=== PATIENT | female | born 2000 | race Caucasian/White ===

== ENCOUNTER 2023-11-06 05:46 | Day surgery (SDC) | payer OTHER ==
[2023-11-06] VITALS (7 sets, daily range): BP systolic 101–125; BP diastolic 53–70
[~2023-11-06] VITALS: Ht 170.2 cm; Wt 59.1 kg
[~2023-11-06 05:46] MED LIST: LACTATED RINGER'S 1,000 ML IV SCH
[2023-11-06] MEDS ORDERED: MISOPROSTOL200 MCG PO (06:02)
[2023-11-06] MEDS ORDERED: KETOROLAC TROMETHAMINE 30 MG/ML VIAL ONE (06:38)
[2023-11-06] MEDS ORDERED: METOCLOPRAMIDE HCL 10 MG/2 ML SDV ONE (06:38)
[2023-11-06] MEDS ORDERED: LACTATED RINGER'S 1,000 ML IV ONE (06:38)
[2023-11-06] MEDS ORDERED: fentaNYL citrate 100 MCG/2 ML VIAL ONE (06:38)
[2023-11-06] MEDS ORDERED: FAMOTIDINE 20 MG/ 2 ML VIAL ONE (06:38)
[2023-11-06] MEDS ORDERED: DEXAMETHASONE SOD PHOS 4 MG/ML VIAL ONE (06:38)
[2023-11-06] MEDS ORDERED: ondansetron HCL 4 MG/2 ML VIAL ONE (06:38)
[2023-11-06] MEDS ORDERED: propofoL 200 MG/20 ML VIAL ONE (06:38)
[2023-11-06] MEDS ORDERED: MIDAZOLAM HCL 2 MG/2 ML VIAL ONE (06:38)
[2023-11-06] MEDS ORDERED: IBLOOD GLUCOSE TEST STRIP 1 EA TEST VI PRN ×2 (07:00→08:15)
[2023-11-06] MEDS ORDERED: CEFAZOLIN SODIUM 2 GM/20 ML SYR IV SCH (07:00)
[2023-11-06] MEDS ORDERED: LIDOCAINE HCL 1% 5 ML SDV INJ ONE (07:00)
[2023-11-06] MEDS ORDERED: RHO(D) IMMUNE GLOBULIN 1,500 UNIT/2 ML ML IM SCH (07:00)
[2023-11-06] MEDS ORDERED: droPERidol 5 MG/2 ML VIAL ONE (07:22)
--- NOTE | 2023-11-06 07:23 | NUR ---
PT GONE FOR PROCEDURE. PROVIDED PRAYER.
--- NOTE | 2023-11-06 07:35 | NUR ---
PT IN PROCEDURE. VISITED FAMILY IN ROOM; NO ANXIETY OR NERVOUSNESS IN EVIDENCE; STATED NO IMMEDIATE NEEDS. BABY FORMUL[employer] WORKER PROVIDED SUPPORTIVE PRESENCE, HOSPITALITY, PRAYER.
[2023-11-06] MEDS ORDERED: ePHEDrine sulfate 50 MG/ML AMP ONE (07:51)
[2023-11-06] MEDS ORDERED: SIMETHICONE 125 MG TABLET CHEWABLE PO PRN (08:00)
[2023-11-06] MEDS ORDERED: FAMOTIDINE 20 MG/ 2 ML VIAL IV PRN (08:00)
[2023-11-06] MEDS ORDERED: FAMOTIDINE 20 MG TAB PO PRN (08:00)
[2023-11-06] MEDS ORDERED: MAGNESIUM HYDROXIDE/AL HYDROX 30 ML CUP PO PRN (08:00)
[2023-11-06] MEDS ORDERED: bisacodyL 10 MG SUPP PR PRN (08:00)
[2023-11-06] MEDS ORDERED: HYDROCODONE/ACETA 5/325 TAB PO PRN (08:00)
[2023-11-06] MEDS ORDERED: NALOXONE HCL 0.4 MG SYR IV PRN ×2 (08:00→08:15)
[2023-11-06] MEDS ORDERED: ZOLPIDEM TARTRATE 5 MG TAB PO PRN (08:00)
--- NOTE | 2023-11-06 08:03 | NUR ---
11/06/23 0803 Jennifer Stephen [id number] PT TO PACU ORAL AIRWAY IN PLACE, SCANT BLOOD NOTED ON ZOEY PAD.
[2023-11-06] MEDS ORDERED: METOCLOPRAMIDE HCL 10 MG/2 ML SDV IV PRN (08:15)
[2023-11-06] MEDS ORDERED: MORPHINE SULFATE 10 MG/ML VIAL IV PRN (08:15)
[2023-11-06] MEDS ORDERED: ondansetron HCL 4 MG/2 ML VIAL IV PRN (08:15)
[2023-11-06] MEDS ORDERED: droPERidol 5 MG/2 ML VIAL IV PRN (08:15)
[2023-11-06] MEDS ORDERED: fentaNYL citrate 50 MCG/ML SDV IV PRN (08:15)
[2023-11-06] MEDS ORDERED: PROCHLORPERAZINE EDISYLATE 10 MG/2 ML VIAL IV PRN (08:15)
[2023-11-06] MEDS ORDERED: MINERAL OIL/CHONDRUS 30 ML BTL PO SCH (09:00)
[2023-11-06] MEDS ORDERED: SIMETHICONE 125 MG TABLET CHEWABLE PO SCH (09:00)
[2023-11-06] MEDS ORDERED: SENNOSIDES/DOCUSATE 1 EA TAB PO SCH (09:00)
--- NOTE | 2023-11-06 09:55 | NUR ---
LE 0830 PT ARRIVED TO DAY SURGERY FROM PACU VIA STRECHER. PT BREATHING EQUAL AND UNLABORED. PT REPORTS NO NAUSEA. PT REPORTS 6/10 INTOLERABLE PAIN. REPORT TAKEN FROM BRIAN FIGUEROA. IV ASSESSED, VITALS TAKEN. 0850 PT ABLE TO TOLERATE PO PUDDING AND ICE WATER. 0914 PAIN PILL AND GAS RELEIF GIVEN. PT REPORTS NO NAUSEA AT THIS TIME.
--- NOTE | 2023-11-06 09:57 | NUR ---
0930 PT ABLE TO AMBULATE TO BATHROOM AND VOID 400 MLS OF DARK RED URINE WITH SEVERAL SMALL BLOOD CLOTS AND ONE LARGER BLOOD CLOT ABOUT THE SIZE OF AN EGG. 0940 HOURLY ROUNDING DONE PT REPORTS 3/10 TOLERABLE PAIN. PT REPORTS NO NAUSEA. ZOEY PAD CHANGED, MODERATE AMOUNT OF RED DRAINAGE NOTED. 0955 [facility]ED [facility] TO [facility] TO UPDATE DR ON PT CONDITION. AWAITING CALL BACK.
[2023-11-06] MEDS ORDERED: miSOPROStoL 200 MCG TAB SL ONE (10:30)
--- NOTE | 2023-11-06 10:34 | NUR ---
1010 PT VOIDED 600 MLS OF DARK RED URINE, WITH SEVERAL SMALL CLOTS AND 1-2 LARGE EGG SIZED CLOTS. [address] ARBOLEDA AND UPDATED ON SITUATION. VERBALLY ORDERED 800 MCG CYTOTEC SL ONCE NOW, AND WOULD LIKE TO BE UPDATED ON PT CONDITION 30 MINUTES AFTER BEING GIVEN. 1023 SPOKE WITH PHARMACY ABOUT ORDER TO BE PUT IN PIXUS.
--- NOTE | 2023-11-06 10:36 | NUR ---
1030 HOURLY ROUDNING DONE. UPDATED PT ON MEDICATIONS AND SITUATION, EDUCATED ABOUT CLOTS. VITALS TAKEN. PAIN TOLERABLE /10. PT RESTING IN BED WITH CALL LIGHT WITHIN REACH AND BOYFRIEND AT BEDSIDE. PT REPORTS NO NAUSEA.
--- NOTE | 2023-11-06 10:44 | NUR ---
1042 800 MCG OF CYTOTEC GIVEN SUBLIGINALLY PER VERBAL ORDER FROM MD. PT DONE WITH SL TABLETS AT 1052. PT IN BED WITH BOYFRIEND AT BEDSIDE. PT HAS CALL LIGHT WITHIN REACH AND PERSONAL ITEMS WITHIN REACH. PT HAS NO FURTHER QUESTIONS AT THIS TIME.
[2023-11-06 11:03] LABS: ABO A; ANTIBODY SCREEN NEGATIVE; FETAL HEMOGLOBIN SCREEN NEGATIVE; RH NEGATIVE; RHIG DOSE 1; RHIG STATUS CANDIDATE; RHIG VIAL 1 RG23O03-I
--- NOTE | 2023-11-06 11:29 | NUR ---
1122 PT GOT UP TO USE RESTROOM AND PT PASSED 1 LOT THE SIZE OF AN EGG AND ANOTHER SMALLER CLOT. [address] ARBOLEDA'S OFFICE TO UPDATE . NO ANSWER.
--- NOTE | 2023-11-06 11:59 | NUR ---
[address] ARBOLEDA ABOUT PT PASSING CLOTS. VERBALLY ORDERED 800 MCG OF CYTOTEC RECTALLY ONCE NOW. 1153 SPOKE WITH PHARMACIST ABOUT ORDER. PHARMACY STATES THEY ONLY HAVE 1000 MCG SUPPOSITORY OR 800 MCG TABLETS. 1155 SPOKE WITH IN REGARDS TO THIS. STATES 1000 MCG SUPPOSITORY IS OKAY. 1156 PHARMACY CALLED BACK AND STATES THEY ONLY HAVE THE TABLETS AND NO SUPPOSITORYS SO PHARMACY IS FILLING ORDER FOR THE 800 MCG TABLETS RECTALLY.
[2023-11-06] MEDS ORDERED: miSOPROStoL 200 MCG TAB PR ONE (12:00)
--- NOTE | 2023-11-06 12:20 | NUR ---
[address] ARBOLEDA ABOUT PATIENT. SPOKE WITH PT AND VIZULIAZED CLOTS. VERBALLY ORDERED 1G TXA IV ONCE NOW. CALLED PHARMACY TO LET THEM KNOW ORDER IS IN. 1220 STATES SHE IS GOING TO BE LEAVING AFTER SHE SEES PATIENT, STATES DR MEJIA WILL BE TAKING OVER WHEN SHE IS GONE FOR THE DAY.
[2023-11-06] MEDS ORDERED: TRANEXAMIC ACID IN NACL,ISO-OS 1,000 MG/100 ML PIGGYBACK IV ONE (12:30)
--- NOTE | 2023-11-06 13:49 | NUR ---
1335 HOURLY ROUNDING DONE. VITALS TAKEN. IV ASSESSED. PT REPORTS TOLERABLE 3/10 PAIN. PT REPORTS NO NAUSEA. PT HAS BEEN ABLE TO TOLERATE PO FLUIDS AND SNACKS. PT HAS BEEN ABLE TO VOID. PER DR ARBOLEDA PT IS ABLE TO DISCHARGE AN HOUR AFTER TXA COMPLETE IF NO FUTHER CLOTS ARE BEING PASSED. PT WAS ABLE TO AMBULATE TO BATHROOM AND VOID A SMALL AMOUNT OF DARK RED URINE, NO CLOTS NOTED. PT WILL TRY AGAIN AT 1400. PT IN BED WITH CALL LIGHT ZIONIHIN REACH AND BOYFRIEND AT BEDSIDE. 1340 DISCHARGE INFORMATION GONE OVER WITH PATIENT AND BOYFRIEND. NO QUESTIONS AT THIS TIME
--- NOTE | 2023-11-06 14:05 | NUR ---
1400 PT ABLE TO AMBULATE TO BATHROOM. PATIENT JUST HAS A SMALL AMOUT OF RED DRAIANGE. NO CLOTS NOTED. PATIENT STATES SHE IS FEELING WELL. PATIENT GETTING DRESSED ON THEIR OWN.
== END 2023-11-06 14:08 | disposition home or self-care (01) ==
LOC: OPS 05:46 → DS 05:46 → OPS 07:30 → DS 07:30 → OPS 14:08
PROVIDERS: ATTEND Obstetrics & Gynecology
PROC: 10D07Z8 Extraction of Products of Conception, Other, Via Natural or Artificial Opening (ICD-10-PCS; principal; 2023-11-06 07:30)
DX: O02.1 Missed abortion (principal)
CPT/HCPCS: 01965; 36415; 83030; 86850; 86900; 86901; A9270; J0690; J1100; J1790; J1885; J2250; J2405; J2704; J2765; J2790; J3010; J7121

== ENCOUNTER 2024-03-19 13:08 | Emergency (ER) | payer OTHER ==
[~2024-03-19] VITALS: Ht 170.2 cm; Wt 64.0 kg
[~2024-03-19 13:08] MED LIST changes: -LACTATED RINGER'S 1,000 ML IV SCH; +MISOPROSTOL200 MCG PO
[2024-03-19 14:07] LABS: BASOPHILS 0.4 % (0-2); EOSINOPHILS 0.3 % (0-6); HEMATOCRIT 38.4 % (35.0-50.0); HEMOGLOBIN 13.2 g/dL (12.0-18.0); LYMPHOCYTES 18.6 % (24-44); MCH 30.8 (27-36); MCHC 34.3 g/dl (30-36); MCV 89.9 fl (81-99); NEUTROPHILS 75.7 % (39-80); PLATELET COUNT 236 K/uL (140-440); RBC 4.27 M/ul (4.3-5.7); RDW 13.2 (10.5-15.0)
[2024-03-19 14:25] LABS: ABO A; RH NEGATIVE
[2024-03-19 14:42] LABS: ALBUMIN 3.6 g/dL (3.4-5.0); ALBUMIN/GLOBULIN RATIO 1.06 (1.1-2.4); ANION GAP 15.2 (7-21); BILIRUBIN, TOTAL 0.3 ng/dL (0.2-1.0); BUN/CREATININE RATIO 18.33 (6.0-28.6); CALCIUM 8.9 mg/dL (8.5-10.1); CREATININE, SERUM 0.6 mg/dL (0.55-1.02); POTASSIUM 3.2 mmol/L (3.5-5.1)
[2024-03-19 15:03] LABS: BILIRUBIN, URINE NEGATIVE (negative); BLOOD/HGB, URINE MODERATE (Negative); KETONE, URINE TRACE (Negative); LEUK ESTERASE, URINE NEGATIVE (negative); NITRITE, URINE NEGATIVE (negative)
[2024-03-19 15:09] LABS: BACTERIA, URINE RARE /hpf (negative); CASTS, URINE NONE SEEN \\lpf; COLLECTION TYPE, URINE CLEAN CATCH; CRYSTALS, URINE NONE SEEN (0-1+); EPITHELIAL CELLS, URINE SQUAMOUS 2+ /lpf (0-1+); REFLEX CULTURE, URINE No (No)
[2024-03-19] MEDS ORDERED: RHO(D) IMMUNE GLOBULIN 1,500 UNIT/2 ML ML IM ONE (16:00)
[2024-03-19 16:09] LABS: RHIG VIAL 1 RG24K02-D
[2024-03-19 17:05] VITALS: BP 107/65
== END 2024-03-19 17:05 | disposition home or self-care (01) ==
LOC: ED 13:08
PROVIDERS: Emergency Medicine
DX: O20.0 Threatened abortion (principal); Z67.91 Unspecified blood type, Rh negative; Z3A.01 Less than 8 weeks gestation of pregnancy
CPT/HCPCS: 36415; 76801; 76817; 80053; 81001; 84702; 85025; 86900; 86901; 96372; 99284-25; J2790

== ENCOUNTER 2024-10-28 06:47 | Inpatient (IN) | payer BC, OTHER ==
[~2024-10-28] VITALS: Ht 170.2 cm; Wt 89.4 kg
[2024-10-28] MEDS ORDERED: LIDOCAINE 2% VISCOUS 6 ML SYR TOP ONE ×4 (08:30→17:15)
[2024-10-28] MEDS ORDERED: LIDOCAINE HCL 1% 30 ML SDV INJ PRN (08:30)
[2024-10-28] MEDS ORDERED: CALCIUM CARBONATE 500 MG CHEW PO PRN ×2 (08:30→17:15)
[2024-10-28] MEDS ORDERED: TERBUTALINE SULFATE 1 MG/ML AMP SUB-Q PRN (08:30)
[2024-10-28] MEDS ORDERED: MAGNESIUM HYDROXIDE/AL HYDROX 30 ML CUP PO PRN ×2 (08:30→17:15)
[2024-10-28 08:35] LABS: MCH 28.5 PG (25.6-32.2); MCHC 32.8 g/dL (32.2-35.5); MCV 86.8 fL (79.4-94.8); RBC 4.25 M/uL (3.93-5.22)
[2024-10-28] MEDS ORDERED: LACTATED RINGER'S 1,000 ML IV SCH (08:45)
[2024-10-28] MEDS ORDERED: fentaNYL citrate 100 MCG/2 ML VIAL ONE (08:50)
[2024-10-28] MEDS ORDERED: ROPIVACAINE 0.2% 200 ML BAG ONE (08:50)
[2024-10-28 09:14] LABS: ABO A; ANTIBODY SCREEN POSITIVE; RH NEGATIVE
[2024-10-28] MEDS ORDERED: LACTATED RINGER'S 2,000 ML IV ONE (09:30)
[2024-10-28] MEDS ORDERED: LACTATED RINGER'S 500 ML IV PRN (09:30)
[2024-10-28] MEDS ORDERED: ePHEDrine sulfate 5 MG/ML SYRINGE IV PRN (09:30)
[2024-10-28] MEDS ORDERED: ROPIVACAINE 0.2% 200 ML BAG EPIDURAL SCH (09:30)
[2024-10-28 09:49] LABS: ANTIBODY IDENTIFICATION ANTI-D
[2024-10-28 10:49] LABS: AMPHETAMINES, URINE NEGATIVE (NEGATIVE); BARBITURATES, URINE NEGATIVE (NEGATIVE); BENZODIAZEPINE, URINE NEGATIVE (NEGATIVE); CANNABINOID, URINE NEGATIVE (NEGATIVE); COCAINE, URINE NEGATIVE (NEGATIVE); ECSTASY, URINE NEGATIVE (NEGATIVE); FENTANYL, URINE NEGATIVE (NEGATIVE); METHADONE, URINE NEGATIVE (NEGATIVE); OPIATES, URINE NEGATIVE (NEGATIVE); OXYCODONE, URINE NEGATIVE (NEGATIVE); PHENCYCLIDINE, URINE NEGATIVE (NEGATIVE)
[2024-10-28] MEDS ORDERED: SOD+POT BICARB/CITRIC ACID 2 EA TABLET.EFF ONE (11:31)
[2024-10-28] MEDS ORDERED: OXYTOCIN/0.9 % SODIUM CHLORIDE 500 ML IV SCH ×2 (11:45→17:15)
[2024-10-28 13:22] VITALS: BP 119/80
[2024-10-28 14:51] LABS: AHG CROSSMATCH COMPATIBLE
[2024-10-28] MEDS ORDERED: ACETAMINOPHEN 325 MG TAB PO PRN (17:15)
[2024-10-28] MEDS ORDERED: WITCH HAZEL/GLYCERIN 1 EA PAD TOP PRN (17:15)
[2024-10-28] MEDS ORDERED: IBUPROFEN 600 MG TAB PO PRN (17:15)
[2024-10-28] MEDS ORDERED: BENZOCAINE 60 ML AEROSOL TOP PRN (17:15)
[2024-10-28] MEDS ORDERED: HYDROCORTISONE ACETATE 25 MG SUPP PR PRN (17:15)
[2024-10-28] MEDS ORDERED: MAGNESIUM HYDROXIDE 30 ML UDC PO PRN (17:15)
[2024-10-28 17:37] LABS: INR 0.95 (0.80-1.30); PROTIME 12.3 Sec (11.2-14.2)
[2024-10-28] MEDS ORDERED: SENNOSIDES/DOCUSATE 1 EA TAB PO SCH (21:00)
[2024-10-29 06:09] LABS: MCH 28.4 PG (25.6-32.2); MCHC 32.0 g/dL (32.2-35.5); MCV 88.9 fL (79.4-94.8); RBC 3.41 M/uL (3.93-5.22)
[2024-10-29 07:26] LABS: ABO A; ANTIBODY SCREEN POSITIVE; FETAL HEMOGLOBIN SCREEN NEGATIVE; RH NEGATIVE
[2024-10-29 07:27] LABS: ANTIBODY IDENTIFICATION ANTI-D; RHIG DOSE 1; RHIG STATUS CANDIDATE
--- NOTE | 2024-10-29 09:39 | NUR ---
Pt to RT department for lexiscan stress test. Gait steady. Education completed and pt verbalized understanding. No questions at this time. HR reg, lungs clear, no sob or chest pain. Stress test completed without difficulty. Pt only complained of slight SOB, LAMAR and abd discomfort, which were resolved during recovery time. Pt ambulates off floor. Gait steady. EKG analysis says Normal sinus rhythm, Nonspecific intraventricular block, Cannot rule out Septal infarct, age undetermined, Lateral infarct, age undetermined. Abnormal EKG. Ekg will be sent to [place] [facility] to be read. Any further questions, see EKG report.
== END 2024-10-29 17:35 | disposition home or self-care (01) | DRG 806 ==
LOC: FBCO 06:47 → FBC 08:13
PROVIDERS: ADMIT Advanced Practice Midwife; ATTEND Advanced Practice Midwife
PROC: 10E0XZZ Delivery of Products of Conception, External Approach (ICD-10-PCS; principal; 2024-10-28)
PROC: 0UQMXZZ Repair Vulva, External Approach (ICD-10-PCS; 2024-10-28)
PROC: 3E0R3BZ Introduction of Anesthetic Agent into Spinal Canal, Percutaneous Approach (ICD-10-PCS; 2024-10-28)
PROC: 00HU33Z Insertion of Infusion Device into Spinal Canal, Percutaneous Approach (ICD-10-PCS; 2024-10-28)
DX: O77.0 Labor and delivery complicated by meconium in amniotic fluid (principal); D62 Acute posthemorrhagic anemia; Z37.0 Single live birth; O69.81X0 Labor and delivery complicated by cord around neck, without compression, not applicable or unspecified; O70.0 First degree perineal laceration during delivery; O99.02 Anemia complicating childbirth; Z87.891 Personal history of nicotine dependence; Z3A.39 39 weeks gestation of pregnancy
CPT/HCPCS: 01960; 36415; 80307; 83030; 85027; 85384; 85610; 85730; 86850; 86870; 86900; 86901; 86922; A9270; J2405; J2790; J2795; J3010; J7121